=== PATIENT | born 1950 ===

== ENCOUNTER 2023-02-28 | Outpatient (REF) | payer MEDICARE, SELFPAY ==
[2023-03-01 11:20] LABS: MRSA Nasal PCR NEGATIVE; SA Nasal PCR NEGATIVE
== END 2023-02-28 00:01 | disposition home or self-care (01) ==
LOC: HO.LNP
PROVIDERS: Visit Provider Orthopaedic Surgery
DX: Z01.818 Encounter for other preprocedural examination (principal); M17.12 Unilateral primary osteoarthritis, left knee
CPT/HCPCS: 87640; 87641